=== PATIENT | female | born 2000 | race Caucasian/White ===

== ENCOUNTER 2019-01-07 10:09 | Emergency (ER) | payer BC ==
[~2019-01-07] VITALS: Ht 167.6 cm; Wt 61.2 kg
[2019-01-07 10:21] VITALS: BP 128/71
--- NOTE | 2019-01-07 10:33 | NUR ---
18F C/O LT EAR LOBE PAIN D/T PART OF LT EARING IN HER LT EAR LAST NIGHT. EARRING IS MADE OF PLASTIC AND METAL. PT PLACED EARRING IN THE EARLOBE AND THE PLASTIC PART BROKE OFF AND PT IS UNABLE TO REMOVE THE METAL PART FROM EAR. WENT TO , AND WAS TOLD SHE NEEDED TO COME TO ER AND HAVE IT REMOVED WITH SEDATION. LT EARLOBE IS RED. STATES 5/10 THROBBING PAIN. HX: ACNE
--- NOTE | 2019-01-07 10:55 | NUR ---
PT AMBULATED TO BATHROOM WITH STEADY GAIT.
--- NOTE | 2019-01-07 11:00 | NUR ---
Dr. Da Silva evaluating patient at bedside.
--- NOTE | 2019-01-07 11:20 | NUR ---
Patient discharged with v/s stable, with mother at side. Written and verbal after care instructions given and explained. Patient verbalized understanding. Ambulatory with steady gait. All questions addressed prior to discharge. Advised to follow up with PMD.
[2019-01-07 11:21] VITALS: BP 128/71
== END 2019-01-07 11:20 | disposition home or self-care (01) ==
LOC: MED 10:09
DX: T16.2XXA Foreign body in left ear, initial encounter (principal); X58.XXXA Exposure to other specified factors, initial encounter; Y93.89 Activity, other specified; Y92.89 Other specified places as the place of occurrence of the external cause; Y99.8 Other external cause status
CPT/HCPCS: 99284